=== PATIENT | female | born 1970 | race Caucasian/White ===

== ENCOUNTER 2020-07-09 16:55 | Inpatient (IN) ==
[2020-07-09] MEDS ORDERED: Naloxone 0.4 MG/ML INJ IVP PRN (19:25)
[2020-07-09] MEDS ORDERED: Ketorolac 15 MG/ML VIAL IVP PRN (19:46)
[2020-07-09] MEDS ORDERED: 0.9 % Sodium Chloride 1,000 ML IVC ONE (19:47)
[2020-07-09] MEDS: Acetaminophen 325 MG TABLET PO PRN (23:21)
[2020-07-10] MEDS: 0.9 % Sodium Chloride 1,000 ML IVC SCH (09:25)
[2020-07-10 14:10] LABS: Basophils % 0.3 %; Eosinophils % 0.3 %; Hemoglobin 12.9 g/dL (11.5-15.4); Immature Granulocytes % 0.5 % (0-4); Lymphocytes # 2.3 K/mcL (0.6-4.6); Lymphocytes % 20.7 %; Mean Corpuscular HGB Conc 33.1 g/dL (31.6-35.5); Mean Corpuscular Hemoglobin 29.3 pg (28.0-33.3); Mean Corpuscular Volume 88.6 fL (83.0-100.0); Mean Platelet Volume 9.9 fL (9.4-12.4); Monocytes # 0.5 K/mcL (0.0-1.3); Monocytes % 4.6 %; Neutrophils # 8.2 K/mcL (1.6-8.9); Platelet Count 195 K/mcL (140-400); Red Cell Distribution Width 12.8 % (11.5-14.5); Segmented Neutrophils % 73.6 %; White Blood Count 11.1 K/mcL (4.3-11.1)
[2020-07-10] MEDS ORDERED: Piperacillin/Tazobactam 3.375 GM VIAL ONE (14:30)
[2020-07-10] MEDS: Piperacillin/Tazobactam 3.375 GM in 0.9 % Sodium Chloride Mini Bag 100 ML IVPB SCH ×2 (14:33→20:31)
[2020-07-10] MEDS ORDERED: methocarbamoL 500 MG TABLET PO PRN (15:19)
[2020-07-10] MEDS ORDERED: SUMAtriptan succinate 50 MG TABLET PO PRN (15:19)
[2020-07-10] MEDS: Acetaminophen 325 MG TABLET PO PRN (16:00)
[2020-07-10] MEDS ORDERED: Piperacillin/Tazobactam 3.375 GM in 0.9 % Sodium Chloride Mini Bag 100 ML IVPB SCH (20:00)
[2020-07-11] MEDS: 0.9 % Sodium Chloride 1,000 ML IVC SCH (00:39)
[2020-07-11 02:09] LABS: Hematocrit 33.4 % (35.3-44.9); Mean Corpuscular HGB Conc 32.9 g/dL (31.6-35.5); Mean Corpuscular Hemoglobin 29.7 pg (28.0-33.3); Mean Corpuscular Volume 90.3 fL (83.0-100.0); Mean Platelet Volume 9.5 fL (9.4-12.4); Platelet Count 192 K/mcL (140-400); Red Cell Distribution Width 12.6 % (11.5-14.5); White Blood Count 8.8 K/mcL (4.3-11.1)
[2020-07-11 02:30] LABS: BUN/Creatinine Ratio 7 (6-26); Blood Urea Nitrogen 4 mg/dL (6-20); Calcium 8.5 mg/dL (8.6-10.3); Carbon Dioxide 24 mEq/L (23-29); Chloride 111 mEq/L (98-107); Glucose 93 mg/dL (70-105); Osmolality,Calculated 291 (280-300); Potassium 3.8 mEq/L (3.5-5.1); Sodium 142 mEq/L (136-145); eGFR For African Americans > 60 (> 60); eGFR For Non-African Americans > 60 (> 60)
[2020-07-11] MEDS: Piperacillin/Tazobactam 3.375 GM in 0.9 % Sodium Chloride Mini Bag 100 ML IVPB SCH ×3 (06:15→22:01)
[2020-07-11] MEDS: Cholecalciferol (D-3) 1,000 UNIT (25MCG) TABLET PO SCH (09:09)
[2020-07-11 12:56] LABS: Bilirubin,Urine Negative (Negative); Blood,Urine Small (Negative); Clarity,Urine Clear (Clear); Color,Urine Colorless (Yellow); Glucose,Urine (UA) Normal (Normal); Ketones,Urine Negative (Negative); Leukocyte Esterase,Urine Trace (Negative); Mucus,Urine Few per lpf (None-Few); Nitrite,Urine Negative (Negative); Protein,Urine Negative (Neg-Trace); Specific Gravity,Urine 1.006 (1.010-1.025); Squamous Epithelial Cell,Urine Few per hpf (None-Few); Urobilinogen,Urine Normal (Normal)
[2020-07-11] MEDS: Fluticasone Propionate Nasal 50 MCG/SPRAY BOTTLE NS SCH (22:41)
[2020-07-12] MEDS: Piperacillin/Tazobactam 3.375 GM in 0.9 % Sodium Chloride Mini Bag 100 ML IVPB SCH ×3 (06:22→20:46)
[2020-07-12] MEDS: Cholecalciferol (D-3) 1,000 UNIT (25MCG) TABLET PO SCH (09:39)
[2020-07-12] MEDS: Fluticasone Propionate Nasal 50 MCG/SPRAY BOTTLE NS SCH (09:40)
[2020-07-12] MEDS: Ondansetron 4 MG/2 ML VIAL IVP PRN (09:44)
[2020-07-13 03:33] LABS: Hematocrit 33.1 % (35.3-44.9); Hemoglobin 11.1 g/dL (11.5-15.4); Mean Corpuscular HGB Conc 33.5 g/dL (31.6-35.5); Mean Corpuscular Hemoglobin 29.8 pg (28.0-33.3); Mean Corpuscular Volume 88.7 fL (83.0-100.0); Mean Platelet Volume 9.2 fL (9.4-12.4); Platelet Count 263 K/mcL (140-400); Red Blood Count 3.73 M/mcL (3.82-4.97); Red Cell Distribution Width 12.4 % (11.5-14.5); White Blood Count 7.3 K/mcL (4.3-11.1)
[2020-07-13] MEDS: Piperacillin/Tazobactam 3.375 GM in 0.9 % Sodium Chloride Mini Bag 100 ML IVPB SCH (05:08)
[2020-07-13] MEDS: Ondansetron 4 MG/2 ML VIAL IVP PRN (05:10)
[2020-07-13] MEDS: Cholecalciferol (D-3) 1,000 UNIT (25MCG) TABLET PO SCH (09:45)
[2020-07-13] MEDS: Fluticasone Propionate Nasal 50 MCG/SPRAY BOTTLE NS SCH (09:46)
[2020-07-13 10:51] VITALS: BP 101/62
== END 2020-07-13 12:57 | disposition home or self-care (01) | DRG 872 ==
LOC: 3ANU → SUATTDRO 18:31
PROVIDERS: ADMIT Internal Medicine; ATTEND Internal Medicine

== ENCOUNTER 2020-08-21 10:05 | Inpatient (IN) ==
[~2020-08-21 10:05] MED LIST: Acetaminophen IV 1,000 MG/100 ML BAG IVPB ONE; Dexamethasone 4 MG/ML VIAL IVP ONE; Famotidine 20 MG/2 ML VIAL IVP ONE; Ondansetron 4 MG/2 ML VIAL IVP ONE; Ringers Solution, Lactated 1,000 ML IVC ONE; Scopolamine Patch 1.5 MG PATCH.TD72 TD ONE
[2020-08-21] MEDS ORDERED: cefOXitin 2,000 MG in Water for inj. (sterile) 20 ML IVP ONE (10:31)
[2020-08-21] MEDS ORDERED: *HR* FentaNYL (PF) 100 MCG/2 ML VIAL IVP PRN (11:34)
[2020-08-21] MEDS ORDERED: Naloxone 0.4 MG/ML INJ IVP PRN ×2 (11:34→16:39)
[2020-08-21] MEDS ORDERED: *HR* HYDROmorphone PF 0.5 MG/0.5 ML SYRINGE IVP PRN (11:34)
[2020-08-21] MEDS ORDERED: Ondansetron 4 MG/2 ML VIAL IVP PRN ×2 (11:34→16:39)
[2020-08-21] MEDS ORDERED: Nitroglycerin 0.4 MG TAB.SUBL SL PRN (11:34)
[2020-08-21] MEDS ORDERED: Albuterol 2.5 MG/3 ML NEBULIZER IH PRN (11:34)
[2020-08-21] MEDS ORDERED: *HR* Midazolam HCl 2 MG/2 ML VIAL ONE (12:16)
[2020-08-21] MEDS ORDERED: *HR* FentaNYL (PF) 100 MCG/2 ML VIAL ONE (12:16)
[2020-08-21] MEDS ORDERED: *HR* Propofol 200 MG/20 ML VIAL IVP ONE (12:17)
[2020-08-21] MEDS ORDERED: Lidocaine -MPF 2% 2 ML VIAL ONE (12:18)
[2020-08-21] MEDS ORDERED: *HR* Rocuronium Bromide 50 MG/5 ML VIAL ONE (12:18)
[2020-08-21] MEDS ORDERED: Lidocaine HCL 4 ML Topical Solution (Laryng-O-Jet Kit Sterile Pak) TP ONE (12:20)
[2020-08-21] MEDS ORDERED: Sugammadex Sodium 200 MG/2 ML VIAL IV ONE ×2 (12:34→14:52)
[2020-08-21] MEDS ORDERED: Ondansetron 4 MG/2 ML VIAL ONE (13:40)
[2020-08-21] MEDS ORDERED: Dexamethasone 4 MG/ML VIAL ONE (13:40)
[2020-08-21] MEDS ORDERED: Ketorolac 30 MG/ML VIAL ONE (15:01)
[2020-08-21] MEDS ORDERED: *HR* HYDROMORPHONE 2 MG/ML VIAL ONE (15:06)
[2020-08-21] MEDS: *HR* Heparin 5,000 UNIT/ML VIAL SQ SCH (17:27)
[2020-08-21] MEDS: Ketorolac 15 MG/ML VIAL IVP SCH ×2 (17:28→23:10)
[2020-08-21] MEDS: Acetaminophen IV 1,000 MG/100 ML BAG IVPB SCH ×2 (17:29→23:23)
[2020-08-21] MEDS: 0.9 % Sodium Chloride 1,000 ML IVC SCH (17:29)
[2020-08-21] MEDS: *HR* OxyCODONE Immed Rel 5 MG TABLET PO PRN (18:54)
[2020-08-22 03:59] LABS: Basophils % 0.1 %; Hematocrit 31.8 % (35.3-44.9); Hemoglobin 10.9 g/dL (11.5-15.4); Immature Granulocytes % 0.4 % (0-4); Lymphocytes # 1.3 K/mcL (0.6-4.6); Lymphocytes % 10.2 %; Mean Corpuscular HGB Conc 34.3 g/dL (31.6-35.5); Mean Corpuscular Hemoglobin 29.9 pg (28.0-33.3); Mean Corpuscular Volume 87.1 fL (83.0-100.0); Mean Platelet Volume 9.3 fL (9.4-12.4); Monocytes # 0.4 K/mcL (0.0-1.3); Monocytes % 2.8 %; Neutrophils # 11.2 K/mcL (1.6-8.9); Platelet Count 213 K/mcL (140-400); Red Blood Count 3.65 M/mcL (3.82-4.97); Red Cell Distribution Width 12.7 % (11.5-14.5); Segmented Neutrophils % 86.5 %
[2020-08-22 04:18] LABS: BUN/Creatinine Ratio 18 (6-26); Blood Urea Nitrogen 10 mg/dL (6-20); Calcium 8.8 mg/dL (8.6-10.3); Carbon Dioxide 23 mEq/L (23-29); Chloride 105 mEq/L (98-107); Glucose 141 mg/dL (70-105); Osmolality,Calculated 281 (280-300); Potassium 4.1 mEq/L (3.5-5.1); Sodium 135 mEq/L (136-145); eGFR For African Americans > 60 (> 60); eGFR For Non-African Americans > 60 (> 60)
[2020-08-22] MEDS: Acetaminophen IV 1,000 MG/100 ML BAG IVPB SCH ×4 (05:10→23:53)
[2020-08-22] MEDS: *HR* Heparin 5,000 UNIT/ML VIAL SQ SCH ×2 (05:14→17:47)
[2020-08-22] MEDS: Ketorolac 15 MG/ML VIAL IVP SCH ×4 (05:14→23:54)
[2020-08-22] MEDS: 0.9 % Sodium Chloride 1,000 ML IVC SCH ×2 (06:50→21:37)
[2020-08-22] MEDS ORDERED: 0.9 % Sodium Chloride 500 ML IV ONE ×2 (06:52→07:15)
[2020-08-22] MEDS: *HR* OxyCODONE Immed Rel 5 MG TABLET PO PRN (08:42)
[2020-08-23] MEDS: *HR* OxyCODONE Immed Rel 5 MG TABLET PO PRN ×2 (01:58→10:46)
[2020-08-23] MEDS: *HR* Heparin 5,000 UNIT/ML VIAL SQ SCH (05:19)
[2020-08-23] MEDS: Ketorolac 15 MG/ML VIAL IVP SCH ×2 (05:19→12:27)
[2020-08-23] MEDS: Acetaminophen IV 1,000 MG/100 ML BAG IVPB SCH ×2 (05:20→12:27)
[2020-08-23 11:06] VITALS: BP 99/61
[2020-08-23] MEDS: 0.9 % Sodium Chloride 1,000 ML IVC SCH (12:26)
== END 2020-08-23 18:59 | disposition home or self-care (01) | DRG 331 ==
LOC: SAMDAY 10:05 → 3ANU 16:19
PROVIDERS: ADMIT Surgery; ATTEND Surgery